=== PATIENT | female | born 2005 | race Caucasian/White ===

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

== ENCOUNTER → 2024-01-28 | Outpatient (CLI) | payer OTHER, MEDICAID ==
[2024-01-28 13:09] LABS: HEMATOCRIT 34.5 % (36.0-47.0); MEAN CORPUSCULAR HEMOGLOBIN 36.7 pg (27.0-33.0); MEAN CORPUSCULAR HGB CONC 34.8 g/dl (32.0-36.5); MEAN CORPUSCULAR VOLUME 105.5 fl (80.0-96.0); PLATELET COUNT, AUTOMATED 252 10^3/uL (150-450); RED BLOOD COUNT 3.27 10^6/uL (4.00-5.40); WHITE BLOOD COUNT 7.5 10^3/uL (4.0-10.0)
[2024-01-28 13:49] LABS: HIV 1&2 SCREEN NEGATIVE (NEGATIVE)
[2024-01-28 13:56] LABS: HEPATITIS C VIRUS ABY INDEX 0.02 INDEX (<0.8)
[2024-01-28 14:52] LABS: GC DNA AMPLIFICATION NEGATIVE (NEGATIVE)
== END ==
LOC: M PLALAB 09:54
PROVIDERS: ATTEND Obstetrics & Gynecology
DX: Z34.02 Encounter for supervision of normal first pregnancy, second trimester (principal); Z3A.00 Weeks of gestation of pregnancy not specified

== ENCOUNTER → 2024-04-24 | Outpatient (REF) | payer OTHER ==
[~2024-04-24] MED LIST: ACET-683 PO; IBUP80TA PO; PRENTAB9 PO; TUMS750C5 PO
== END ==
LOC: M PLALAB 11:47
PROVIDERS: ATTEND Nurse Practitioner Family
DX: Z34.93 Encounter for supervision of normal pregnancy, unspecified, third trimester (principal); Z3A.36 36 weeks gestation of pregnancy

== ENCOUNTER 2024-05-02 23:24 | Outpatient (CLI) | payer OTHER ==
[~2024-05-02] VITALS: Ht 154.9 cm; Wt 65.0 kg
[2024-05-02] MEDS ORDERED: PRENTAB9 PO (23:33)
[2024-05-02 23:43] VITALS: BP 107/68
[2024-05-02] MEDS ORDERED: HOME MED LIST COMPLETE! XX SCH (23:45)
[2024-05-03 01:12] LABS: APPEARANCE, URINE HAZY (CLEAR); BACTERIA, URINE AUTO NEGATIVE (NEGATIVE); BILIRUBIN, URINE AUTO NEGATIVE (NEGATIVE); BLOOD, URINE BLOOD 2+ (NEGATIVE); COLOR, URINE YELLOW (YELLOW); GLUCOSE, URINE (UA) AUTO NEGATIVE (NEGATIVE); KETONE, URINE AUTO NEGATIVE (NEGATIVE); LEUKOCYTE ESTERASE, URINE AUTO NEGATIVE (NEGATIVE); MUCUS, URINE SMALL (NEGATIVE); NITRITE, URINE AUTO NEGATIVE (NEGATIVE); PROTEIN, URINE AUTO NEGATIVE (NEGATIVE); RBC, URINE AUTO 16 /HPF (0-3); SPECIFIC GRAVITY URINE AUTO 1.005 (1.002-1.035); SQUAMOUS EPITHELIAL CELL UR AU 1 /HPF (0-6); UROBILINOGEN, URINE AUTO 0.2 mg/dL (0.0-2.0); WBC, URINE AUTO 2 /HPF (0-3)
== END 2024-05-03 01:27 | disposition home or self-care (01) ==
LOC: M LDO 23:24
PROVIDERS: ATTEND Specialist
DX: O26.893 Other specified pregnancy related conditions, third trimester (principal); R10.2 Pelvic and perineal pain; Z3A.37 37 weeks gestation of pregnancy
CPT/HCPCS: 59025; 81001; G0463

== ENCOUNTER 2024-05-16 01:00 | Outpatient (CLI) | payer OTHER ==
[~2024-05-16] VITALS: Ht 154.9 cm; Wt 65.2 kg
[~2024-05-16 01:00] MED LIST changes: -ACET-683 PO; -IBUP80TA PO; -TUMS750C5 PO
[2024-05-16] MEDS ORDERED: HOME MED LIST COMPLETE! XX SCH (01:10)
[2024-05-16 01:15] VITALS: BP 120/80
== END 2024-05-16 01:46 | disposition home or self-care (01) ==
LOC: M LDO 01:00
PROVIDERS: ATTEND Advanced Practice Midwife
DX: O47.1 False labor at or after 37 completed weeks of gestation (principal); Z3A.39 39 weeks gestation of pregnancy
CPT/HCPCS: 59025; G0463

== ENCOUNTER 2024-05-18 18:04 | Outpatient (CLI) | payer OTHER ==
[~2024-05-18] VITALS: Ht 154.9 cm; Wt 66.3 kg
[2024-05-18] MEDS ORDERED: HOME MED LIST COMPLETE! XX SCH (18:20)
[2024-05-18 18:22] VITALS: BP 121/73
[2024-05-18 20:28] VITALS: BP 103/57
== END 2024-05-18 21:18 | disposition home or self-care (01) ==
LOC: M LDO 18:04
PROVIDERS: ATTEND Advanced Practice Midwife
DX: O47.1 False labor at or after 37 completed weeks of gestation (principal); Z3A.39 39 weeks gestation of pregnancy
CPT/HCPCS: 59025; G0463

== ENCOUNTER 2024-05-22 15:08 | Inpatient (IN) | payer OTHER ==
[~2024-05-22] VITALS: Ht 154.9 cm; Wt 65.8 kg
[2024-05-22] MEDS ORDERED: CARBOPROST TROMETHAMINE 250 MCG/ML AMP IM PRN (15:40)
[2024-05-22] MEDS ORDERED: OXYTOCIN DRIP 30 UNITS in IV 1 EA IV PRN (15:40)
[2024-05-22] MEDS ORDERED: OXYTOCIN INJ 10UNITS/ML 1ML VIAL IM PRN (15:40)
[2024-05-22] MEDS ORDERED: LIDOCAINE 1% MDV 20ML VIAL INFIL PRN (15:40)
[2024-05-22] MEDS ORDERED: TRANEXAMIC ACID INJection 1,000 MG in NS 100 ML IV PRN (15:40)
[2024-05-22 15:48] VITALS: BP 114/73
[2024-05-22] MEDS ORDERED: HOME MED LIST COMPLETE! XX SCH (15:50)
[2024-05-22] MEDS ORDERED: TUMS750C5 PO (15:50)
[2024-05-22 16:18] LABS: HEMATOCRIT 40.3 % (36.0-47.0); HEMOGLOBIN 14.4 g/dl (12.0-15.5); MEAN CORPUSCULAR HEMOGLOBIN 36.6 pg (27.0-33.0); MEAN CORPUSCULAR HGB CONC 35.7 g/dl (32.0-36.5); MEAN CORPUSCULAR VOLUME 102.5 fl (80.0-96.0); PLATELET COUNT, AUTOMATED 274 10^3/uL (150-450); RED BLOOD COUNT 3.93 10^6/uL (4.00-5.40); WHITE BLOOD COUNT 9.3 10^3/uL (4.0-10.0)
[2024-05-22 16:40] VITALS: BP 109/68
[2024-05-22] MEDS: miSOPROStol 50MCG 1/2 TABLET PO SCH (16:40)
[2024-05-22 17:31] LABS: HEPATITIS C VIRUS ABY INDEX < 0.02 INDEX (<0.8)
[2024-05-22 17:40] VITALS: BP 108/66
[2024-05-22 18:46] VITALS: BP 121/76
[2024-05-22 20:10] VITALS: BP 132/65
[2024-05-22] MEDS ORDERED: PEN G POT 3,000,000 UNIT/50 ML 3,000,000 UNIT in IV 1 EA IV SCH (20:35)
[2024-05-22 22:57] VITALS: BP 114/72
[2024-05-23] VITALS (62 sets, daily range): BP systolic 95–130; BP diastolic 52–85; O2SAT 99
[2024-05-23] MEDS: CALCIUM CARBONATE 500 MG CHEW U/D PO PRN (04:39)
[2024-05-23] MEDS ORDERED: EPIDURAL/PCA KEYS XX PRN (09:40)
[2024-05-23] MEDS ORDERED: NALOXONE INJ 0.4MG/1ML VIAL IV PRN (09:40)
[2024-05-23] MEDS ORDERED: LR 500 ML IV PRN (09:40)
[2024-05-23] MEDS ORDERED: diphenhydrAMINE 50MG/ML VIAL IV PRN (09:40)
[2024-05-23] MEDS: PENICILLIN G POTASSIUM 5 MU IV 5 MU in DEXTROSE 5% (D5W) MINI-BAG PLU 100 ML IV STA ×2 (09:47→09:51)
[2024-05-23] MEDS: FENTANYL/ROPIVACAINE/NACL BAG 100 ML EPIDURAL SCH (09:50)
[2024-05-23] MEDS: LR 1,000 ML IV SCH (10:22)
[2024-05-23] MEDS: ePHEDrine SULFATE 25 MG/5 ML(5MG/ML) SYRINGE IVP PRN (11:03)
[2024-05-23] MEDS: OXYTOCIN DRIP 30 UNITS in IV 1 EA IV SCH (11:31)
[2024-05-23] MEDS: PEN G POT 3,000,000 UNIT/50 ML 3,000,000 UNIT in IV 1 EA IV SCH (13:58)
[2024-05-23] MEDS: ONDANSETRON 4MG 2ML VIAL IV PRN (14:27)
[2024-05-23] MEDS: METOCLOPRAMIDE INJ 10MG/2ML VIAL IV PRN (19:05)
[2024-05-23] MEDS: METHYLERGONOVINE MALEATE 0.2MG/ML 1ML VIAL IM PRN (19:48)
[2024-05-23] MEDS ORDERED: ACETAMINOPHEN 325 MG TAB PO PRN (20:20)
[2024-05-23] MEDS ORDERED: METHYLERGONOVINE MALEATE 0.2 MG TAB PO PRN (20:20)
[2024-05-23] MEDS ORDERED: ONDANSETRON 4MG 2ML VIAL As Ordered ONE (21:17)
[2024-05-23] MEDS: ACETAMINOPHEN 500 MG TAB PO PRN (22:48)
[2024-05-24] MEDS: IBUPROFEN 800 MG TAB PO PRN (02:15)
[2024-05-24 06:00] VITALS: BP 107/67; O2SAT 98
[2024-05-24] MEDS: DOCUSATE SODIUM 100MG CAPSULE PO PRN (09:08)
[2024-05-24] MEDS: PRENATAL VITAMINS CHEWABLE TABLET PO SCH (09:09)
[2024-05-24] MEDS: DIBUCAINE 1% OINTMENT 30GM TOP PRN (09:10)
[2024-05-24] MEDS: RHOGAM 300MCG (1500IU) INJ IM SCH (14:30)
[2024-05-24 18:00] VITALS: BP 117/64; O2SAT 98
[2024-05-25 05:33] VITALS: BP 109/62; O2SAT 97
[2024-05-25] MEDS: IBUPROFEN 600MG TAB PO PRN (05:42)
[2024-05-25] MEDS ORDERED: MEASLES,MUMPS,RUBELLA VACCINE INJ (MMR-II) SC.IMMUN ONE (09:00)
[2024-05-25] MEDS ORDERED: ACET-683 PO (11:53)
[2024-05-25] MEDS ORDERED: IBUP80TA PO (11:53)
== END 2024-05-25 13:05 | disposition home or self-care (01) | DRG 560 ==
LOC: M LDI 15:08 → M OBS 05-23 22:55
PROVIDERS: ADMIT Advanced Practice Midwife; ATTEND Advanced Practice Midwife
PROC: 3E033VJ Introduction of Other Hormone into Peripheral Vein, Percutaneous Approach (ICD-10-PCS; 2024-05-22)
PROC: 3E0P7VZ Introduction of Hormone into Female Reproductive, Via Natural or Artificial Opening (ICD-10-PCS; 2024-05-22)
PROC: 10E0XZZ Delivery of Products of Conception, External Approach (ICD-10-PCS; principal; 2024-05-23)
PROC: 0HQ9XZZ Repair Perineum Skin, External Approach (ICD-10-PCS; 2024-05-23)
PROC: 0KQM0ZZ Repair Perineum Muscle, Open Approach (ICD-10-PCS; 2024-05-23)
DX: O48.0 Post-term pregnancy (principal); O99.824 Streptococcus B carrier state complicating childbirth; Z37.0 Single live birth; Z3A.40 40 weeks gestation of pregnancy; Z88.2 Allergy status to sulfonamides; O70.0 First degree perineal laceration during delivery; O70.1 Second degree perineal laceration during delivery